=== PATIENT | male | born 1950 | race Two or more races ===

== ENCOUNTER 2016-12-04 10:38 | Emergency (ER) | payer OTHER ==
[~2016-12-04] VITALS: Ht 177.8 cm; Wt 112.5 kg
[~2016-12-04 10:38] MED LIST: AMIO200T2 PO; APIX5TAB PO; ASPI-612 PO; CARV25TA2 PO; FURO-69 PO; FURO80TA3 PO; GLYB5TAB3 PO; METF500T4 PO; POTA20TA4 PO; RAMI10CA PO
[2016-12-04] MEDS ORDERED: IPRATRPIUM/ALBUTEROL 0.5/2.5MG 3 ML NEBU. NEB ONE (11:00)
[2016-12-04 11:13] LABS: BASO % 1 % (0-3); EOS % 2 % (0-3); HEMATOCRIT 45.3 % (39.0-53.0); HEMOGLOBIN 15.4 g/dL (13.0-17.5); LYMPH # 1.5 x10^3/uL (1.0-4.8); LYMPH % 25 % (24-48); MEAN CORPUSCULAR HEMOGLOBIN 30 pg (25-35); MEAN CORPUSCULAR HGB CONC 34 g/dL (31-37); MEAN CORPUSCULAR VOLUME 89 fL (79-100); MONO % 14 % (0-9); NEUT % 59 % (31-73); PLATELET COUNT 118 x10^3/uL (140-400); RED BLOOD COUNT 5.11 x10^6/uL (4.30-5.70); RED CELL DISTRIBUTION WIDTH 13.5 % (11.5-14.5); WHITE BLOOD COUNT 5.9 x10^3/uL (4.0-11.0)
[2016-12-04 11:22] LABS: CALCIUM 9.6 mg/dL (8.5-10.1); CREATININE 1.3 mg/dL (0.7-1.3); GFR 55.6; POTASSIUM 4.2 mmol/L (3.5-5.1)
[2016-12-04 11:26] LABS: ALBUMIN 3.8 g/dL (3.4-5.0); DIRECT BILIRUBIN 0.3 mg/dL (0.0-0.2); TOTAL BILIRUBIN 1.3 mg/dL (0.2-1.0); TOTAL PROTEIN 7.8 g/dL (6.4-8.2)
--- NOTE | 2016-12-04 11:27 | RAD ---
AP PORTABLE CHEST Clinical Indication: short of breath. Comparison: AP chest 07/29/2014. Findings: Prominent cardiac silhouette is stable. Finding may be due to borderline cardiomegaly or pericardial effusion. Lungs are clear. There is no pneumothorax. No pleural effusion is appreciated. There is no acute bone abnormality. Degenerative endplate spurring in the thoracic spine. IMPRESSION: No acute cardiopulmonary process.
[2016-12-04] MEDS ORDERED: HYDR-2758 PO (11:30)
[2016-12-04] MEDS ORDERED: GABA-585 PO (11:30)
[2016-12-04] MEDS ORDERED: ACYC800T PO (11:30)
--- NOTE | 2016-12-04 11:30 | PHYS DOC ---
Past Medical History Past Medical History: CHF, Hypertension, Pancreatitis Past Surgical History: Cholecystectomy Alcohol Use: None Drug Use: None Adult General Chief Complaint Chief Complaint: chest wall pain HPI HPI 66-year-old male presenting to the emergency department with left neuropathic pain after developing rash for the past week. The patient recently traveled to [place] and upon traveling there he developed a rash starting in the back and going around the left rib in a dermatomal distribution. Initially the rash blistered and then healed over with a honeycombed fluid. He over the past 3 days has been having worsening pain that is sharp stabbing in the left skin/rib area. He denies nausea or diaphoresis. He states that he is short of breath however when I asked him to explain this he explains that it hurts to take deep breaths and so he feels short of breath because he doesn't want to take a deep breath in. He denies abdominal pain nausea or vomiting. Onset 1 week. Location left rib/skin. Duration constant. No alleviating or exacerbating factors present. Review of systems is negative for abdominal pain nausea vomiting fevers chills. All other review of systems is negative unless otherwise noted in history of present illness. ED course: 66-year-old gentleman presenting to the emergency department with neuropathic left chest wall pain from shingles. EKG obtained which shows mild bradycardia. Leftward axis present. QRS is prolonged. ST segments are congruent. Not suggestive of ACS. Nonspecific T-wave inversions and flattening present. Chest x-ray and blood work obtained. The patient was given IV medication for pain and nausea. He was in discharged home with gabapentin and hydrocodone for pain control and follow-up with his doctor in the next few days. The patient was then discharged home in stable condition to follow up with their primary care physician over the next 2-3 days. They were to return if their symptoms worsened or if they were concerned for any reason. Face-to- face discharge instructions and return precautions were given. Patient's questions were answered to their satisfaction. Patient is comfortable plan. Review of Systems Review of Systems SEE ABOVE. Current Medications Current Medications Current Medications Medications (Trade) Dose Ordered Sig/Alfredo Start Time Stop Time Status Last Admin Dose Admin Albuterol/ Ipratropium (Duoneb) 3 ml 1X ONCE 12/04/16 11:00 12/04/16 11:01 DC 12/04/16 11:38 3 ML Allergies Allergies Allergies Coded Allergies Type Severity Reaction Last Updated Verified iodine Allergy Intermediate 07/30/14 Yes Physical Exam Physical Exam Constitutional: Well developed, well nourished, no acute distress, non-toxic appearance. [] HENT: Normocephalic, atraumatic, bilateral external ears normal, oropharynx moist, no oral exudates, nose normal. [] Eyes: PERRLA, EOMI, conjunctiva normal, no discharge. [] Neck: Normal range of motion, no tenderness, supple, no stridor. [] Cardiovascular:Heart rate regular rhythm, no murmur [] Lungs & Thorax: Bilateral breath sounds clear to auscultation . The patient's left chest wall shows a maculopapular rash with blistering consistent with shingles. Abdomen: Bowel sounds normal, soft, no tenderness, no masses, no pulsatile masses. [] Skin: Warm, dry, no erythema, no rash. [] Back: No tenderness, no CVA tenderness. [] Extremities: No tenderness, no cyanosis, no clubbing, ROM intact, no edema. [] Neurologic: Alert and oriented X 3, normal motor function, normal sensory function, no focal deficits noted. [] Psychologic: Affect normal, judgement normal, mood normal. [] Current Patient Data Vital Signs Vital Signs Date Time Temp Pulse Resp B/P (MAP) Pulse Ox O2 Delivery O2 Flow Rate FiO2 12/04/16 11:38 94 Room Air 12/04/16 10:49 97.7 55 18 161/90 (113) 97.7 Lab Values Laboratory Tests Test 12/04/16 10:55 White Blood Count 5.9 x10^3/uL (4.0-11.0) Red Blood Count 5.11 x10^6/uL (4.30-5.70) Hemoglobin 15.4 g/dL (13.0-17.5) Hematocrit 45.3 % (39.0-53.0) Mean Corpuscular Volume 89 fL (79-100) Mean Corpuscular Hemoglobin 30 pg (25-35) Mean Corpuscular Hemoglobin Concent 34 g/dL (31-37) Red Cell Distribution Width 13.5 % (11.5-14.5) Platelet Count 118 x10^3/uL (140-400) L Neutrophils (%) (Auto) 59 % (31-73) Lymphocytes (%) (Auto) 25 % (24-48) Monocytes (%) (Auto) 14 % (0-9) H Eosinophils (%) (Auto) 2 % (0-3) Basophils (%) (Auto) 1 % (0-3) Neutrophils # (Auto) 3.4 x10^3uL (1.8-7.7) Lymphocytes # (Auto) 1.5 x10^3/uL (1.0-4.8) Monocytes # (Auto) 0.8 x10^3/uL (0.0-1.1) Eosinophils # (Auto) 0.1 x10^3/uL (0.0-0.7) Basophils # (Auto) 0.0 x10^3/uL (0.0-0.2) Sodium Level 138 mmol/L (136-145) Potassium Level 4.2 mmol/L (3.5-5.1) Chloride Level 102 mmol/L (98-107) Carbon Dioxide Level 27 mmol/L (21-32) Anion Gap 9 (6-14) Blood Urea Nitrogen 22 mg/dL (8-26) Creatinine 1.3 mg/dL (0.7-1.3) Estimated GFR (Cockcroft-Gault) 55.6 Glucose Level 208 mg/dL (70-99) H Calcium Level 9.6 mg/dL (8.5-10.1) Total Bilirubin 1.3 mg/dL (0.2-1.0) H Direct Bilirubin 0.3 mg/dL (0.0-0.2) H Aspartate Amino Transferase (AST) 25 U/L (15-37) Alanine Aminotransferase (ALT) 35 U/L (16-63) Alkaline Phosphatase 94 U/L (46-116) Troponin I Quantitative 0.031 ng/mL (0.000-0.055) UJ-Mtr-H-Type Natriuretic Peptide 919 pg/mL (0-124) H Total Protein 7.8 g/dL (6.4-8.2) Albumin 3.8 g/dL (3.4-5.0) Lipase 119 U/L (73-393) Laboratory Tests 12/04/16 10:55 Laboratory Tests 12/04/16 10:55 EKG EKG See above. [] Radiology/Procedures Radiology/Procedures [] Course & Med Decision Making Course & Med Decision Making Pertinent Labs and Imaging studies reviewed. (See chart for details) [] Dragon Disclaimer Dragon Disclaimer This electronic medical record was generated, in whole or in part, using a voice recognition dictation system. Departure Departure Impression: Primary Impression: Samira Disposition: HOME, SELF-CARE Condition: STABLE Referrals: LEAH PIERSON MD (PCP) Patient Instructions: Samira Additional Instructions: Thank you for allowing us to participate in your care today. 1. Take oral pain medications as needed. 2. Follow-up with your doctor. Followup with your primary care physician in 3 days if your symptoms do not improve. Call your Primary Doctor tomorrow and inform them of your visit today. If you do not have a primary care provider you can ask for a list of our primary care providers. Return to the emergency department you have any new or concerning findings. This should be evaluated by the primary care physician and any necessary consulting services for continued management within a few days after discharge. Return to emergency room if you have any new or concerning symptoms including but not limited to fever, chills, nausea, vomiting, intractable pain, any new rashes, chest pain, shortness of air, uncontrolled bleeding, difficulty breathing, and/or vision loss. Scripts Acyclovir (ACYCLOVIR) 800 Mg Tablet 1 TAB PO 5XDAY for 7 Days, #35 TAB Prov: LAI FELTON MD 12/04/16 Hydrocodone Bit/Acetaminophen (HYDROCODONE-APAP 5-325 ) 1 Each Tablet 1 TAB PO PRN Q6HRS Y for PAIN, #15 TAB 0 Refills Be careful as this medication may cause you to be drowsy or tired. Do not drive on this medication. Prov: LAI FELTON MD 12/04/16 Gabapentin (GABAPENTIN) 100 Mg Capsule 100 MG PO TID for 5 Days, #15 CAP Prov: LAI FELTON MD 12/04/16 LAI FELTON MD Dec 04, 2016 11:30
--- NOTE | 2016-12-04 11:46 | EKG ---
[facility] [address] [place] [address] Test Date: 2016-12-04 Test Time: 11:15:58 Pat Name: JAQUAN MARQUEZ Department: Room: Gender: M Cranberry Sorter: : 1950 Requested By: LAI FELTON Order Number: [id number] Reading MD: Measurements Intervals Basco Rate: 51 P: 0 NH: 112 QRS: -26 QRSD: 122 T: -24 QT: 504 QTc: 467 Interpretive Statements SINUS RHYTHM LEFTWARD AXIS INCOMPLETE LEFT BUNDLE BRANCH BLOCK QRS(T) CONTOUR ABNORMALITY CONSIDER ANTEROSEPTAL MYOCARDIAL DAMAGE T ABNORMALITY IN INFERIOR LEADS RI6.01 Unconfirmed report No previous ECG available for comparison
[2016-12-04 12:45] VITALS: BP 115/59
== END 2016-12-04 12:53 | disposition home or self-care (01) ==
LOC: ER 10:38
DX: B02.9 Zoster without complications (principal); R07.89 Other chest pain; I11.0 Hypertensive heart disease with heart failure; I50.9 Heart failure, unspecified; Z91.041 Radiographic dye allergy status
CPT/HCPCS: 36415; 71010; 80048; 80076; 83690; 83880; 84484; 85027; 93005; 94250; 94640; 99285; J7620

== ENCOUNTER → 2020-12-11 | Outpatient (CLI) | payer MEDICARE, OTHER ==
[~2020-12-11] MED LIST changes: +ACYC800T88 PO; -AMIO200T2 PO; +AMIO200T6 PO; -ASPI-612 PO; +ASPI-886 PO; +GABA-585 PO; +HYDR-2761 PO; +METF500T16 PO; -METF500T4 PO; -RAMI10CA PO; +RAMI10CA53 PO
--- NOTE | 2020-12-11 11:37 | KCIC ---
Exam performed: CT scan of the head without contrast. Date of Service: 12/11/2020. Comparison: None available. Clinical History: Unsteady gait, history of hypertension. Technique: Helical acquisitions are obtained from the foramen magnum to the vertex without intravenou s administration of contrast. Findings: The ventricles are midline without evidence of dilatation. Normal brown-white differentiation is maint ained. There is no extra axial fluid collection, intraparenchymal hemorrhage or mass lesion. Mild at rophy is noted. The visualized portions of the orbits, paranasal sinuses and the mastoid air cells ap pear clear. The calvarium is intact. Impression: 1. No acute intracranial process detected. PQRS Compliance Statement: One or more of the following individualized dose reduction techniques were utilized for this examinat ion: 1. Automated exposure control 2. Adjustment of the mA and/or kV according to patient size 3. Use of iterative reconstruction technique Electronically signed by: Francheska Oh MD (12/11/2020 11:34 AM) [facility]
== END ==
LOC: KCIC CT 11:09
PROVIDERS: ATTEND Family Medicine
DX: G31.9 Degenerative disease of nervous system, unspecified (principal); R26.81 Unsteadiness on feet
CPT/HCPCS: 70450